=== PATIENT | male | born 1990 | race Caucasian/White ===

== ENCOUNTER 2017-08-24 16:59 | Emergency (ER) ==
[2017-08-24 17:02] VITALS: BP 126/77; TEMP 97; BMI 24.4
[2017-08-24] MEDS ORDERED: LIDOCAINE HCL 1% SDV IM STA (17:05)
[2017-08-24] MEDS ORDERED: DECADRON 4 MG/ML SDV IM STA (17:05)
[2017-08-24] MEDS ORDERED: ROCEPHIN IM STA (17:05)
--- NOTE | 2017-08-24 17:09 | ED.PDOC ---
General ED Provider: Dr. JORDAN ELLIOTT-ER Chief Complaint: Respiratory Complaint Stated Complaint: zhen got sinus pain and pressure and post nasal drip for 3 days Time Seen by Physician: 17:07 Mode of Arrival: Walk-In Information Source: Patient Exam Limitations: No limitations Nursing and Triage Documentation Reviewed and Agree: Yes Reviewed sepsis parameters & appropriate labs ordered?: Yes System Inflammatory Response Syndrome: Not Applicable Sepsis Protocol: For patient's 13 years and over: Temp is 96.8 and below OR 101 and greater Pulse >90 BPM Resp >20/minute Acutely Altered Mental Status Are patient's symptoms suggestive of a new infection, such as: -Pneumonia -Skin, Soft Tissue -Endocarditis -UTI -Bone, Joint Infection -Implantable Device -Acute Abdominal Infection -Wound Infection -Meningitis -Blood Stream Catheter Infection -Unknown Respiratory Complaint Exam - Respiratory Complaint/Exam Onset/Duration: 3 days Symptoms Are: Still present Timing: Constant Initial Severity: Mild Location: Nose Character: Reports: Non-productive cough Aggravating: Reports: URI Alleviating: Reports: None Associated Signs and Symptoms: Reports: URI, Nasal congestion, Sinus discomfort , Decreased oral intake. Denies: Rapid breathing, Dyspnea, Fever, Chills, Chest pain, Pleuritic chest pain, Wheezing, Hemoptysis, Dizziness, Calf pain, Calf swelling, Edema, Hoarseness, Vomiting, Sore throat, Weight loss, Increased thirst, Increased appetite, Increased urination History of Healthcare-Acquired Pneumonia: No Home Oxygen Use: No Recent Stress Test: No Recent Echo/LV Function: No Current Antibiotic Use: No Current Asthma Medication Use: No Respiratory Distress: None Inadequate Respiratory Effort: No Dysphagia Present: No Stridor Present: No JVD Present: No Retractions: Not Present Diminished Breath Sounds: No Sinus Tenderness: Maxillary Grunting Respirations: No Kussmaul Respirations: No Differential Diagnoses: Sinusitis Review of Systems - Review Of Systems Constitutional: Reports: No symptoms Eyes: Reports: No symptoms Ears, Nose, Mouth, Throat: Reports: Nose discharge Respiratory: Reports: No symptoms Cardiac: Reports: No symptoms GI: Reports: No symptoms : Reports: No symptoms Musculoskeletal: Reports: No symptoms Skin: Reports: No symptoms Neurological: Reports: No symptoms Endocrine: Reports: No symptoms Hematologic/Lymphatic: Reports: No symptoms All Other Systems: Reviewed and Negative Past Medical History - Past Medical History Previously Healthy: Yes Endocrine: Reports: Unknown Cardiovascular: Reports: Unknown Respiratory: Reports: Unknown Hematological: Reports: Unknown Gastrointestinal: Reports: Unknown Genitourinary: Reports: Unknown Neuro/Psych: Reports: Unknown Musculoskeletal: Reports: Unknown Cancer: Reports: Unknown - Surgical History General Surgical History: Reports: Unknown - Family History Family History: Reports: Unknown - Social History Smoking Status: Current every day smoker Hx Substance Use: No Alcohol Screening: Occasionally Physical Exam - Physical Exam Appearance: Well-appearing Eyes: ARIANNE ENT: Ears normal, Nose normal (noted maxillary sinus tenderness and yellow post nasal drip), Oropharynx normal, Rhinorrhea Neck: Supple Respiratory: Airway patent Cardiovascular: RRR GI/: Soft, Nontender, No masses, Bowel sounds normal, No Organomegaly Musculoskeletal: Normal strength, ROM intact, No edema, No calf tenderness Skin: Warm, Dry, Normal color Neurological: Sensation intact, Motor intact, Reflexes intact, Cranial nerves intact, Alert, Oriented Psychiatric: Affect appropriate, Mood appropriate Critical Care Note - Critical Care Note Total Time (mins): 0 Course - Course Orders, Labs, Meds: Orders Category Date Time Status Ceftriaxone Sodium [Rocephin] MEDS 08/24/17 17:05 Discontinued 1 gm IM ONCE STA Dexamethasone 4 mg/ml Inj [Decadron 4 mg/ml Sdv] MEDS 08/24/17 17:05 Discontinued 4 mg IM ONCE STA Lidocaine HCl/Pf [Lidocaine HCl 1% Sdv] MEDS 08/24/17 17:05 Discontinued 2.1 ml IM ONCE STA Medications Discontinued Medications Generic Name Dose Route Start Last Admin Trade Name Freq PRN Reason Stop Dose Admin Ceftriaxone Sodium 1 gm 08/24/17 17:05 Rocephin IM 08/24/17 17:06 ONCE STA Dexamethasone Sodium Phosphate 4 mg 08/24/17 17:05 Decadron 4 Mg/Ml Sdv IM 08/24/17 17:06 ONCE STA Lidocaine HCl 2.1 ml 08/24/17 17:05 Lidocaine Hcl 1% Sdv IM 08/24/17 17:06 ONCE STA Vital Signs: Temp Pulse Resp BP Pulse Ox 08/24/17 16:59 97.0 F L 53 L 20 126/77 98 Departure - Departure Time of Disposition: 17:09 Disposition: HOME SELF-CARE Discharge Problem: Sinusitis, acute Qualifiers: Sinusitis location: other Recurrence: non-recurrent Qualified Code(s): J01.80 - Other acute sinusitis Instructions: Rhinosinusitis (ED) Condition: Good Pt referred to PMD for follow-up: Yes IPMP verified?: No Additional Instructions: augmentin 875mg bid x 10 days =--medrol dose pack---f/u with pcp this week Allergies/Adverse Reactions: Allergies No Known Allergies Allergy (Unverified 08/24/17 17:02) Home Medications: Ambulatory Orders 1 [No Reported Medications] 08/24/17 Disposition Discussed With: Patient
== END 2017-08-24 17:43 | disposition home or self-care (01) ==
LOC: ED 16:59
DX: J01.80 Other acute sinusitis (principal); F17.210 Nicotine dependence, cigarettes, uncomplicated
CPT/HCPCS: 96372; 99282

== ENCOUNTER 2017-08-30 07:46 | Emergency (ER) ==
[2017-08-30 08:01] VITALS: BP 119/75; TEMP 97.1; BMI 23.6
[2017-08-30] MEDS ORDERED: TORADOL IM STA (08:18)
--- NOTE | 2017-08-30 08:22 | ED.PDOC ---
General ED Provider: Dr. ANNABELLA BARTLETT Chief Complaint: Headache Stated Complaint: Came for the headache, sinus congestion,. started taking antibiotics Augmentin, vomited 3 -4 times today. Time Seen by Physician: 08:19 Mode of Arrival: Walk-In Information Source: Patient Primary Care Provider: KARLI GOINS Nursing and Triage Documentation Reviewed and Agree: Yes Reviewed sepsis parameters & appropriate labs ordered?: Yes System Inflammatory Response Syndrome: Not Applicable Sepsis Protocol: For patient's 13 years and over: Temp is 96.8 and below OR 101 and greater Pulse >90 BPM Resp >20/minute Acutely Altered Mental Status Are patient's symptoms suggestive of a new infection, such as: -Pneumonia -Skin, Soft Tissue -Endocarditis -UTI -Bone, Joint Infection -Implantable Device -Acute Abdominal Infection -Wound Infection -Meningitis -Blood Stream Catheter Infection -Unknown Neurological Complaint Exam - Headache Complaint/Exam Onset: Gradual Symptoms Are: Still present Timing: Constant Worst Headache Ever: No Initial Severity: Moderate Current Severity: Moderate Location: Right, Left, Frontal Aggravating: Reports: None Alleviating: Reports: None Associated Signs and Symptoms: Reports: Nausea, Vomiting. Denies: Dizziness, Seizure, Sinus pressure, Fever, Neck pain, Neck stiffness, Decreased LOC, Visual changes Related Surgical History: Reports: None SAH Risk Factors: Reports: None Meningitis Risk Factors: Reports: None SDH Risk Factors: Reports: None Temporal Arteritis Risk Factors: Reports: None Normal Head CT Within Last 12 Months: No Temporal Artery Tenderness: Present: None Sinus Tenderness: Present: Frontal TMJ Tenderness: Present: None Meningeal Signs Positive: No Pain on Passive Flexion-Positive Kernig's: No ROM Limited In: No Limitiations Focal Weakness: Present: None Focal Sensory Loss: Present: None Gait: Normal Nystagmus Present: No Gag Reflex Present: No [id number]: Normal Findings Romberg Test Positive: No Babinski Sign: Negative Right, Negative Left Differential Diagnoses: Sinus Headache, Tension Headache Review of Systems - Review Of Systems Constitutional: Reports: Malaise, Weakness Eyes: Reports: No symptoms Ears, Nose, Mouth, Throat: Reports: No symptoms Respiratory: Reports: No symptoms Cardiac: Reports: No symptoms GI: Reports: Nausea, Vomiting : Reports: No symptoms Musculoskeletal: Reports: No symptoms Skin: Reports: No symptoms Neurological: Reports: Headache Endocrine: Reports: No symptoms Hematologic/Lymphatic: Reports: No symptoms All Other Systems: Reviewed and Negative Past Medical History - Past Medical History Previously Healthy: Yes Endocrine: Reports: Unknown Cardiovascular: Reports: Unknown Respiratory: Reports: Unknown Hematological: Reports: Unknown Gastrointestinal: Reports: Unknown Genitourinary: Reports: Unknown Neuro/Psych: Reports: Unknown Musculoskeletal: Reports: Unknown Cancer: Reports: Unknown - Surgical History General Surgical History: Reports: Unknown - Family History Family History: Reports: Unknown - Social History Smoking Status: Current every day smoker, Light tobacco smoker Smoking Cessation Counseling Time: > 3 min - 10 min Hx Substance Use: No Alcohol Screening: Occasionally Physical Exam - Physical Exam Appearance: Ill-appearing, Obese Pain Distress: Moderate Eyes: ARIANNE, EOMI, Conjunctiva clear ENT: Ears normal, Nose normal, Oropharynx normal Respiratory: Airway patent, Breath sounds clear, Breath sounds equal, Respirations nonlabored Cardiovascular: RRR, Pulses normal, No rub, No murmur GI/: Soft, Nontender, No masses, Bowel sounds normal, No Organomegaly Musculoskeletal: Normal strength, ROM intact, No edema, No calf tenderness Skin: Warm, Dry, Normal color Neurological: Sensation intact, Motor intact, Reflexes intact, Cranial nerves intact, Alert, Oriented Psychiatric: Affect appropriate, Mood appropriate Interpretation - Radiology Interpretation Radiology Interpretation By: Radiologist Radiology Results: Positive Exam Interpreted: CT Scan - EKG Interpretation Time of EKG #1: 09:28 Rate: Robbin Rhythm: Sinus Re-Evaluation - Re-Evaluation Time of Re-Evaluation: 09:28 (no vomiting.) Status: Improved Vital Signs Stable: No (sinus robbin) Appearance: NAD Lungs: Clear Skin: Warm and Dry Neuro: Alert and Oriented X3 CV: RRR Critical Care Note - Critical Care Note Total Time (mins): 30 Course - Course Hematology/Chemistry: 08/30/17 08:20 08/30/17 08:20 Orders, Labs, Meds: Lab Review 08/30/17 08/30/17 08:20 08:20 WBC 9.01 RBC 5.12 Hgb 15.3 Hct 45.1 MCV 88.1 MCH 29.9 MCHC 33.9 RDW Coeff of Catalino 13.0 Plt Count 181 Immature Gran % (Auto) 0.2 Neut % (Auto) 69.5 Lymph % (Auto) 24.5 Edgar % (Auto) 5.3 Eos % (Auto) 0.3 Baso % (Auto) 0.2 Immature Gran # (Auto) 0.0 Neut # (Auto) 6.3 Lymph # (Auto) 2.2 Edgar # (Auto) 0.5 Eos # (Auto) 0.0 Baso # (Auto) 0.0 Sodium 139 Potassium 4.3 Chloride 105 Carbon Dioxide 24 Anion Gap 14.3 BUN 16 Creatinine 1.15 H Estimated GFR (MDRD) 76.00 BUN/Creatinine Ratio 13.91 Glucose 164 H Calcium 9.6 Total Bilirubin 0.8 AST 12 L ALT 14 Alkaline Phosphatase 80 Total Protein 7.4 Albumin 4.1 Globulin 3.3 Albumin/Globulin Ratio 1.24 Orders Category Date Time Status EKG-(ED ONLY) Stat CARDIO 08/30/17 08:15 Completed NPO REMINDER: IMAGING ONCE CARE 08/30/17 09:09 Completed CBC W/ AUTO DIFF Stat LAB 08/30/17 08:20 Completed COMPREHENSIVE METABOLIC PANEL Stat LAB 08/30/17 08:20 Completed URINALYSIS C & S IF INDICATED Stat LAB 08/30/17 08:15 Uncollected URINE DRUG SCREEN (RAPID FOR ED) [DRUG SCREEN, URINE, LAB 08/30/17 08:15 Uncollected RAPID] Stat Dexamethasone 4 mg/ml Inj [Decadron 4 mg/ml Sdv] MEDS 08/30/17 09:27 Stat 10 mg IVP ONCE STA Ketorolac Tromethamine [Toradol] MEDS 08/30/17 08:18 Discontinued 30 mg IM ONCE STA CT HEAD W/CONTRAST Routine RADS 08/30/17 09:[address] HEAD W/O CONTRAST Stat RADS 08/30/17 08:15 Completed Medications Discontinued Medications Generic Name Dose Route Start Last Admin Trade Name Freq PRN Reason Stop Dose Admin Dexamethasone Sodium Phosphate 10 mg 08/30/17 09:27 Decadron 4 Mg/Ml Sdv IVP 08/30/17 09:28 ONCE STA Ketorolac Tromethamine 30 mg 08/30/17 08:18 08/30/17 08:37 Toradol IM 08/30/17 08:19 30 mg ONCE STA Administration Vital Signs: Temp Pulse Resp BP Pulse Ox 08/30/17 07:49 97.1 F L 40 L 16 119/75 96 Departure - Departure Time of Disposition: 09:29 Disposition: TSF SHORT-TRM HOSP Discharge Problem: Left frontal lobe mass, Intracranial edema Instructions: Brain Tumors (DC) Condition: Serious Pt referred to PMD for follow-up: No IPMP verified?: No Additional Instructions: Disposition Discussed With: Patient Dr MARCANO, NEUROSURGEON ACCEPTED PATIENT, HE WILL SENT TO ER, DR MAYBERRY. talked to him advised 10 mg of Decadron IVP. again, at this time Patient is crying, moving all the extremities. Allergies/Adverse Reactions: Allergies No Known Allergies Allergy (Verified 08/30/17 08:01) Home Medications: Ambulatory Orders 1 [No Reported Medications] 08/24/17 Disposition Discussed With: Patient
--- NOTE | 2017-08-30 08:48 | CT ---
EXAM: CT scan of the head without contrast HISTORY: Headache TECHNIQUE: Imaging of the head was performed without contrast. 5 mm thin axial images and coronal a nd sagittal images were provided for interpretation. FINDINGS: There is a large amount of edema seen within the left frontal lobe. There is suggestion o f a large oval hypodense mass lesion seen in the left frontal lobe measuring 5.8 cm AP, 3.9 cm transv erse. There is shift of the midline underneath the falx measuring approximately 7.8 mm. The basal ci sterns are patent. The paranasal sinuses and mastoid air cells are clear. The calvarium appears nor mal. IMPRESSION: There is suspicion for a large mass lesion seen within the left frontal lobe associated with surrounding edema causing subfalcine herniation measuring 7.8 mm. MRI of the brain with and with out contrast can be obtained for further evaluation.
[2017-08-30] MEDS ORDERED: DECADRON 4 MG/ML SDV IVP STA (09:27)
[2017-08-30] MEDS ORDERED: MANNITOL IV STA (10:47)
[2017-08-30] MEDS ORDERED: SODIUM CHLORIDE IV STA (10:47)
[2017-08-30] MEDS ORDERED: KEPPRA 500 MG in SODIUM CHLORIDE 100 ML IV STA (10:50)
== END 2017-08-30 11:48 | disposition short-term general hospital (02) ==
LOC: ED 07:46
DX: R22.0 Localized swelling, mass and lump, head (principal); G93.6 Cerebral edema; R51 Headache; R11.2 Nausea with vomiting, unspecified; R53.1 Weakness; F17.210 Nicotine dependence, cigarettes, uncomplicated
CPT/HCPCS: 36415; 80053; 85025; 93005; 93010; 96372; 96374; 96375; 99285